=== PATIENT | male | born 1950 | race Caucasian/White ===

== ENCOUNTER 2017-03-03 13:45 | Inpatient (IN) | payer OTHER ==
--- NOTE | 2017-03-03 20:38 | GCON ---
[f rep st] CONSULTATION MEDICAL ONCOLOGY FOLLOWUP CONSULTATION REASON FOR CONSULTATION: Ongoing management of hypercalcemia, renal insufficiency, and possible mult iple myeloma. RECOMMENDATIONS: 1. The patient's workup has been started as an outpatient. He got a bone marrow biopsy in the offic e today. His quantitative immunoglobins are pending. His beta 2 microglobulin is pending. He has n ot yet had an osseous survey which I have ordered and he has not yet had a 24 hour urine which I have also ordered. 2. 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 He will nee d to be hydrated and once his creatinine is hopefully down to 1.4 or less, we can give him Zometa to help control his calcium. 3. The patient's creatinine is elevated at 2.4. This is new over the past year. His baseline is 0. 9, and has risen to 2.4 as of today. This may be related to either his underlying monoclonal gammopa thy, his hypercalcemia or both. This will be treated primarily with hydration. 4. Additional recommendations will depend on current workup. ASSESSMENT: This 66-year-old white male was in his usual state of health until approximately a month ago when he began to develop aches in his left chest and sternum. He seemed to have migratory aches and pains in his shoulders as well as his sternum, but his sternum is the primary area where he has discomfort. He noticed that this became worse after having upper respiratory infection and coughing. He denies any pneumonia. Otherwise he has had some minor weight loss, perhaps 12 pounds overall. He has had decrease in appetite. His thinks he has been somewhat forgetful but the patient ghazala es any confusion. He has had no nausea or vomiting. He denies any constipation. He has had no spontaneous fractures. The patient is now admitted for control of his high calcium as well as treatment of his renal insuffi ciency. We will also continue his workup for multiple myeloma, which has been partially sent as an o utpatient but will be completed as an inpatient. PAST MEDICAL HISTORY: Is essentially otherwise unremarkable except for hypertension. SOCIAL HISTORY: The patient does not smoke or drink to excess. He has been involved in house remode ling and rehabilitation. REVIEW OF SYSTEMS: Remarkable for fatigue, pain and weight loss. Some forgetfulness. He has no con stipation. No nausea and vomiting. His 10 system review is otherwise unremarkable. PHYSICAL EXAMINATION: GENERAL: Reveals an alert, white male, in no acute distress. His and alireza alex are in the room with us. HEENT: Unremarkable. LUNGS: Clear to auscultation. CARDIAC: Francisca ws a regular rhythm. ABDOMEN: Shows active bowel sounds. MUSCULOSKELETAL: The patient has tendern ess of his sternum and left thorax. No crepitus is noted. He has no tenderness to percussion of his spine. LOWER EXTREMITIES: Show no edema. SKIN: Shows dry skin. LABORATORY EXAM: CBC today shows a white count of 4.86 with a hemoglobin of 10.7, an MCV of 94, and a platelet count of 184,000. The patient's sodium is 146. His potassium is 3.9. His creatinine is 2.4 with a calcium of 13.4. His BUN is slightly elevated at 26. His transferrin saturation is yanely l. His ferritin is elevated at 528. His C-reactive protein is undetectable at less than 5.0. The p atient's serum protein electrophoresis shows an M spike in the gamma region. 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 His immunofixation showed a monoclonal kappa light chain. This was se nt to [facility] for confirmation. His IgG IgA and IgM are pending. Thank you very much for allowing us to participate with this pleasant gentleman's care, and I look diogenes reich to assisting with his management during this hospitalization, and our practice will provide [facility] care as an outpatient. /[id number]/MODL
[2017-03-03] MEDS ORDERED: ZOLPIDEM TARTRATE 5 MG TAB PO PRN (20:40)
[2017-03-03] MEDS ORDERED: ONDANSETRON 4 MG/2 ML VIAL IVP PRN (20:40)
[2017-03-03] MEDS: oxyCODONE IR 5 MG TAB PO PRN (20:55)
[2017-03-03] MEDS ORDERED: LR 1,000 ML IV SCH (21:00)
[2017-03-04 08:10] LABS: CARBON DIOXIDE 27 mEq/l (22-31); CHLORIDE 108 mEq/L (97-110); CREATININE 2.6 mg/dL (0.7-1.3); GLOMERULAR FILTRATION RATE 25; GLUCOSE 101 mg/dL (70-100); SODIUM 146 mEq/L (134-144)
[2017-03-04 08:16] LABS: ANION GAP 11 mEq/L (8-16); POTASSIUM 4.1 mEq/L (3.5-5.2)
[2017-03-04 08:23] LABS: CALCIUM 13.1 mg/dL (8.5-10.4)
[2017-03-04] MEDS ORDERED: FUROSEMIDE 40 MG/4 ML VIAL IVP SCH (09:00)
--- NOTE | 2017-03-04 09:44 | ASMTCMCOM ---
CM Note CM Note Notes: Pt's DC needs are TBD. Pt admitted for hypercalcemia and workup for multiple myeloma. CM will continue to follow and provide support and resources for pt and family. Date Signed: 03/04/2017 09:44 AM Electronically Signed By:Maryann Flannery LCSW
[2017-03-04] MEDS: ENOXAPARIN 40 MG/0.4 ML SYR SC SCH (09:45)
[2017-03-04] MEDS: ATORVASTATIN CALCIUM 20 MG TAB PO SCH (09:45)
[2017-03-04] MEDS ORDERED: LR 1,000 ML IV SCH (10:00)
[2017-03-04] MEDS ORDERED: LR 1,000 ML IV ONE (10:00)
--- NOTE | 2017-03-04 10:22 | SOAPPROG ---
MICHAEL Progress Note Assessment/Plan: Assessment: - Multiple myeloma - high degree of certainty based on labs and lytic lesions in calvarium. I think there is sufficient evidence to place him on definitive treatment for multiple myeloma. I'll start Decadron 40mg PO days 1-4 and 9-12 with Velcade 1.3mg/m2 day 1, 4, 8, 11 Q21 days for first 2 cycles (dex decreases to days 1-4 only for cycles 3 and 4). - Hypercalcemia - related to underlying myeloma - will give Zometa today (over 60 min). - Renal failure - related to underlying myeloma - continue hydration Will check pending studies (bmbx, quant Ig and light chains) when available Plan: - Dex 40mg/day PO days 1-4, 9-12 - Velcade - 1.3mg/m2 days 1,4,8,11 - Zometa 4mg Subjective: No new complaints. Bones hurt Objective: Vital Signs Temp Pulse Resp BP Pulse Ox 36.4 C 64 17 159/83 H 98 03/04/17 08:56 03/04/17 08:56 03/04/17 08:56 03/04/17 08:56 03/04/17 08:56 Laboratory Results 03/04/17 07:38 03/02/17 03/03/17 03/04/17 23:59 23:59 23:59 Intake Total 0 300 Output Total 100 1220 Balance -100 -920 Physical Exam - Physical Exam General Appearance: alert, mild distress, No anxiety Respiratory: lungs clear Cardiac/Chest: regular rate, rhythm Abdomen: normal bowel sounds, non-tender, soft Skin: warm/dry Neuro/Psych: no motor/sensory deficits, alert, normal mood/affect, oriented x 3 ICD10 Worksheet Patient Problems: Problems Problem Status Onset Multiple myeloma Acute - ICD10 Problem Qualifiers (1) Multiple myeloma
[2017-03-04] MEDS ORDERED: ZOLEDRONIC ACID 4 MG in D5W 100 ML IV ONE (10:41)
[2017-03-04] MEDS: ACETAMINOPHEN 325 MG TAB PO PRN (11:13)
[2017-03-04] MEDS: DEXAMETHASONE 4 MG TAB PO SCH (12:22)
--- NOTE | 2017-03-04 14:30 | SOAPPROG ---
MICHAEL Progress Note Assessment/Plan: 1. Presumed Multiple myeloma - discussed with Dr Oconnell, plan to start Decadron 40mg PO days 1-4 and 9-12 with Velcade 1.3mg/m2 day 1, 4, 8, 11 Q21 days for first 2 cycles (dex decreases to days 1-4 only for cycles 3 and 4). 2. Hypercalcemia - related to underlying presumed myeloma - will give Zometa today (over 60 min). 3. Acute renal injury - likely related to presumed myeloma - continue hydration with IVF and encourage PO DVT prophy- lovenox PCP- Phanesteil DISPO- > 48 hours because of initiation of treatment for presumed MM FULL CODE Subjective: Having mild random areas of pain. Denies n/v/d. Objective: Vital Signs Temp Pulse Resp BP Pulse Ox 97.5 F 62 17 136/76 H 96 03/04/17 11:58 03/04/17 11:58 03/04/17 11:58 03/04/17 11:58 03/04/17 11:58 Laboratory Results 03/04/17 07:38 03/03/17 03/04/17 03/05/17 11:59 11:59 11:59 Intake Total 300 Output Total 1320 Balance -1020 Physical Exam - Physical Exam General Appearance: WD/WN, alert, no apparent distress EENT: normal ENT inspection, pharynx normal Respiratory: lungs clear, normal breath sounds Cardiac/Chest: regular rate, rhythm, No edema, No systolic murmur Abdomen: normal bowel sounds, non-tender, soft Skin: warm/dry Neuro/Psych: alert, normal mood/affect, No cognition abnormalities ICD10 Worksheet Patient Problems: Problems Problem Status Onset Multiple myeloma Acute
[2017-03-04] MEDS ORDERED: BORTEZOMIB SC SCH (15:00)
[2017-03-04] MEDS ORDERED: ONDANSETRON DISINTEGRATING 4 MG TAB PO PRN (16:43)
[2017-03-04] MEDS: oxyCODONE IR 5 MG TAB PO PRN (21:22)
[2017-03-05 04:33] LABS: HEMOGLOBIN 8.3 g/dL (13.7-17.5); MEAN CELL HEMOGLOBIN 32.4 pg (27.9-34.1); MEAN CELL HEMOGLOBIN CONCENTR. 34.6 g/dL (32.4-36.7); MEAN CELL VOLUME 93.8 fL (81.5-99.8); RED BLOOD CELL COUNT 2.56 10^6/uL (4.40-6.38); RED CELL DISTRIBUTION WIDTH 12.2 % (11.5-15.2)
[2017-03-05 05:15] LABS: ANION GAP 11 mEq/L (8-16); CALCIUM 11.9 mg/dL (8.5-10.4); CARBON DIOXIDE 26 mEq/l (22-31); CHLORIDE 106 mEq/L (97-110); CREATININE 2.5 mg/dL (0.7-1.3); GLOMERULAR FILTRATION RATE 26; GLUCOSE 137 mg/dL (70-100); POTASSIUM 3.9 mEq/L (3.5-5.2); SODIUM 143 mEq/L (134-144)
[2017-03-05] MEDS: ACETAMINOPHEN 325 MG TAB PO PRN (10:02)
[2017-03-05] MEDS: ATORVASTATIN CALCIUM 20 MG TAB PO SCH (10:02)
[2017-03-05] MEDS: DEXAMETHASONE 4 MG TAB PO SCH (10:02)
[2017-03-05] MEDS: ENOXAPARIN 40 MG/0.4 ML SYR SC SCH (10:04)
[2017-03-05] MEDS ORDERED: PANTOPRAZOLE SODIUM 40 MG TAB PO SCH (11:30)
[2017-03-05 11:59] VITALS: BP 115/62; PULSE 65; RESP 16; TEMP 97.7; O2SAT 94
--- NOTE | 2017-03-05 13:19 | SOAPPROG ---
MICHAEL Progress Note Assessment/Plan: Assessment: - Multiple myeloma - high degree of certainty based on labs and lytic lesions in calvarium. I think there is sufficient evidence to place him on definitive treatment for multiple myeloma. I'll start Decadron 40mg PO days 1-4 and 9-12 with Velcade 1.3mg/m2 day 1, 4, 8, 11 Q21 days for first 2 cycles (dex decreases to days 1-4 only for cycles 3 and 4). He has kappa light chain disease. Baseline value on 03 MAR 2017 was 4470 with ULN 1.94. No elevation of IgG,A,M - Hypercalcemia - related to underlying myeloma - calcium down today to 11.9 - Renal failure - related to underlying myeloma I spent approximately 40 min in coordination of care and in face to face time with the patient and his family. We discussed light chain myeloma, hypercalcemia , renal failure, and treatment plan. We discussed interim evaluation of his myeloma by monitoring kappa light chains and re-evaluation after 4 cycles. We talked about adding Revlimid with the second cycle. We also touched on the possibility of stem cell transplant and clinical trial participation. Plan: - Dex 40mg/day PO days 1-4, 9-12 - Velcade - 1.3mg/m2 days 1,4,8,11 (will give next dose on 03/09 due to holiday scheduling - He will be evaluated for additional Zometa or other bone health agent as an outpatient - OK for D/C to home today. He will follow up in our office on 03/09 for his next dose of Velcade Subjective: Feels better in general. Objective: Vital Signs Temp Pulse Resp BP Pulse Ox 36.5 C 65 16 115/62 94 03/05/17 11:58 03/05/17 11:58 03/05/17 11:58 03/05/17 11:58 03/05/17 11:58 Laboratory Results 03/05/17 03:55 03/05/17 04:45 03/03/17 03/04/17 03/05/17 23:59 23:59 23:59 Intake Total 0 3200 1400 Output Total 100 2365 950 Balance -100 835 450 Physical Exam - Physical Exam General Appearance: alert, no apparent distress Skin: other (slightly flushed) Neuro/Psych: alert, normal mood/affect, oriented x 3 ICD10 Worksheet Patient Problems: Problems Problem Status Onset Multiple myeloma Acute - ICD10 Problem Qualifiers (1) Multiple myeloma
--- NOTE | 2017-03-05 15:04 | ASDISCHSUM ---
Discharge Information Plan Status:Home with Home Health Medically Cleared to Leave: Discharge Date:03/05/2017 02:56 PM CM D/C Disposition: ADT D/C Disposition:Home, Routine, Self-Care Projected Discharge Date:03/05/2017 02:56 PM Transportation at D/C: Discharge Delay Reason: Follow-Up Date:03/05/2017 02:56 PM Discharge Slot: Final Diagnosis: Placement Information Patient Contact Information Contact Name:JOCELYNE Relationship: Address:[address] Work Phone: City:[place] Alternate Phone: State/Zip Code:[place] [address] Email: Financial Information Financial Class:Medicare Advantage Plans Primary Plan Desc:[facility] ADVANTAGE PLANS Primary Plan Number:[id number] Secondary Plan Desc: Secondary Plan Number: Assessment Information [facility] CM Progress Note CM Note CM Note Notes: Pt's DC needs are TBD. Pt admitted for hypercalcemia and workup for multiple myeloma. CM will continue to follow and provide support and resources for pt and family. Date Signed: 03/04/2017 09:44 AM Electronically Signed By:Maryann Flannery LCSW [facility] CM Progress Note CM Note CM Note Notes: Pt DC'd today. he will f/u at [facility] for next injection. No DC needs identified. Date Signed: 03/05/2017 03:03 PM Electronically Signed By:Maryann Flannery LCSW Intervention Information
--- NOTE | 2017-03-05 15:04 | ASMTCMCOM ---
CM Note CM Note Notes: Pt DC'd today. he will f/u at [facility] for next injection. No DC needs identified. Date Signed: 03/05/2017 03:03 PM Electronically Signed By:Maryann Flannery LCSW
[2017-03-07] MEDS ORDERED: BORTEZOMIB SC SCH (10:00)
[2017-03-10 09:57] LABS: A/G RATIO URINE 0.01; ALBUMIN URINE 1 %; ALPHA-2 GLOBULIN URINE 1 %; BETA-GLOBULIN URINE 4 %; COLLECTION DURATION PEU 24 h; CONCENTRATION PEU 908 mg/dL; GAMMA-GLOBULIN URINE 93 %; M SPIKE 2 22204 mg/24 h; URINE VOLUME PRU 2700 mL
== END 2017-03-05 14:56 | disposition home or self-care (01) | DRG 841 ==
LOC: F1N 15:48
PROVIDERS: ADMIT Internal Medicine; ATTEND Internal Medicine
DX: C90.00 Multiple myeloma not having achieved remission (principal); E83.52 Hypercalcemia; N17.9 Acute kidney failure, unspecified
CPT/HCPCS: 84166-90; J1650; J3489; J9041

== ENCOUNTER → 2017-03-12 | Outpatient (CLI) | payer OTHER | LOC: FIMAGING 13:18 | PROVIDERS: ATTEND Nurse Practitioner | DX: J84.9 Interstitial pulmonary disease, unspecified (principal); C79.51 Secondary malignant neoplasm of bone; S22.42XA Multiple fractures of ribs, left side, initial encounter for closed fracture; C90.00 Multiple myeloma not having achieved remission ==

== ENCOUNTER 2017-07-12 17:05 | Emergency (ER) | payer OTHER ==
[2017-07-12 17:15] VITALS: BP 187/107
--- NOTE | 2017-07-12 17:22 | EDPHY ---
H & P Stated Complaint: r sided port drsg changed at [facility]/now bleeding Time Seen by Provider: 07/12/17 17:21 HPI/ROS: CHIEF COMPLAINT: Bleeding around port HISTORY OF PRESENT ILLNESS: The patient had a port placed last week in anticipation of receiving a bone marrow transplant for multiple myeloma. The patient has had some bleeding around his port. The patient had his dressing changed earlier today. He developed some mild recurrent bleeding today which prompted his visit to the emergency department. The patient is not anticoagulated. He denies any fever. He denies additional acute complaints. REVIEW OF SYSTEMS: A comprehensive 10 point review of systems is otherwise negative aside from elements mentioned in the history of present illness. Source: Patient Exam Limitations: No limitations - Personal History Current Tetanus/Diphtheria Vaccine: Yes - Medical/Surgical History Hx Asthma: No Hx Chronic Respiratory Disease: No Hx Diabetes: No Hx Cardiac Disease: No Hx Renal Disease: No Hx Cirrhosis: No Hx Alcoholism: No Hx HIV/AIDS: No Hx Splenectomy or Spleen Trauma: No Other PMH: High Cholesterol, High Blood pressure, new diagnosis multiple myeloma - Social History Smoking Status: Never smoked - Physical Exam Exam: General Appearance: Alert, no distress Cardiovascular: Regular rate and rhythm Gastrointestinal: Abdomen is soft and nontender, no masses, bowel sounds normal Skin: Port noted to right anterior chest wall with small amount of blood noted under trachea term dressing Musculoskeletal: Neck is supple nontender Extremities: symmetrical, full range of motion Constitutional: Initial Vital Signs Temperature (C) 37.2 C 07/12/17 17:13 Heart Rate 73 07/12/17 17:13 Respiratory Rate 18 07/12/17 17:13 Blood Pressure 187/107 H 07/12/17 17:13 O2 Sat (%) 92 07/12/17 17:13 O2 Delivery Mode Room Air Allergies/Adverse Reactions: No Known Drug Allergies Allergy (Verified 07/12/17 17:12) Home Medications: Medication Instructions Recorded Acyclovir 07/12/17 Gabapentin 07/12/17 Zocor 07/12/17 Medical Decision Making ED Course/Re-evaluation: The patient presents to the ED for bleeding around his port. The patient had a low level of oozing. He was hemodynamically stable. I consulted with Dr. Perez who is on-call for General surgery and he evaluated the patient's port, performed a dressing change and did place some sutures for improved hemostasis. The patient will be discharged from the emergency department at this point time. He is currently hemostatic. Differential Diagnosis: Differential diagnosis considered includes hematoma, cellulitis, abscess Departure - Departure Disposition: Home, Routine, Self-Care Clinical Impression: Multiple myeloma, Chest wall hematoma Instructions: Hematoma (ED) Additional Instructions: 1. Please return to the emergency department for any recurrent bleeding, fever or other concerns. 2. Please follow up as scheduled with your oncologist. Referrals: Jhonatan Rodarte MD [Primary Care Provider] - As per Instructions
--- NOTE | 2017-07-12 19:24 | PDCONSULT ---
Oncology Rn Note: CHIEF COMPLAINT: Bleeding around Guerra catheter HISTORY OF PRESENT ILLNESS: This is a 66-year-old gentleman with a history of multiple myeloma/myelodysplasia who is currently scheduled for stem-cell transplant in 48 hr. He had a Guerra catheter placed by Radiology an outside facility and presents with bleeding after dressing change and topical hemostatic application failure. The patient started having bleeding yesterday. Went in to seek dressing change in care. Initial topical application was successful but when he got home continued to have oozing which was worse than before. Likely the patient has platelet dysfunction and hemostasis will be quite difficult. Past medical surgical history reviewed Medications reviewed No known drug allergies Family history noncontributory Review of systems otherwise negative Alert oriented no distress Lungs clear bilaterally Heart regular rate and rhythm Right chest Guerra catheter insertion site internal jugular. There is bleeding around the catheter with the large sheath surrounding the catheter from the insertion site down around the triple lumen outlet. Impression: Multiple myeloma with mild dysplasia likely platelet dysfunction bleeding around right chest Guerra catheter. Plan: Hemostasis with topical Surgicel and pressure over 10 min unsuccessful. Suture ligature around opening recommended. Patient and understand the risks benefits and alternatives and have consented. Procedure: His chest and catheter cleansed with chlorhexidine. Local anesthetic 1% xylocaine is infused in skin and subcutaneous tissues around the catheter insertion site. A double pursestring using 4-0 nylon suture was applied. After ensuring hemostasis a Biopatch was applied sterile dressing and clear Tegaderm. Over the Tegaderm site 2 squares of 2 x 2 dressing or folded up and a pressure dressing was then also applied. The patient tolerated procedure well sutures can be removed in 7-10 days. The patient understands to return for any additional problems digital pressure can also be applied directly to the dressing for hemostasis initially.
== END 2017-07-12 19:25 | disposition home or self-care (01) ==
DX: T86.09 Other complications of bone marrow transplant (principal); C90.00 Multiple myeloma not having achieved remission; Y82.8 Other medical devices associated with adverse incidents

== ENCOUNTER → 2018-02-11 | Outpatient (CLI) | payer OTHER | LOC: FIMAGING 11:26 | PROVIDERS: ATTEND Internal Medicine Hematology & Oncology | DX: J98.09 Other diseases of bronchus, not elsewhere classified (principal) ==

== ENCOUNTER → 2018-06-13 | Outpatient (CLI) | payer OTHER | LOC: FIMAGING 08:49 | PROVIDERS: ATTEND Internal Medicine Hematology & Oncology | DX: R91.8 Other nonspecific abnormal finding of lung field (principal); R05 Cough; S32.010A Wedge compression fracture of first lumbar vertebra, initial encounter for closed fracture; S22.49XD Multiple fractures of ribs, unspecified side, subsequent encounter for fracture with routine healing; C90.00 Multiple myeloma not having achieved remission ==